=== PATIENT | female | born 1980 | race Caucasian/White ===

== ENCOUNTER → 2024-04-18 13:59 | Outpatient (REF) | payer BC, SELFPAY | LOC: HWWDC 13:59 | PROVIDERS: ATTENDING PHYSICIAN Internal Medicine | DX: Z12.31 Encounter for screening mammogram for malignant neoplasm of breast (principal) | CPT/HCPCS: 77063; 77067 ==

== ENCOUNTER → 2024-07-20 06:33 | Day surgery (SDC) | payer BC, SELFPAY | LOC: GI 06:33 | PROVIDERS: ATTENDING PHYSICIAN Specialist | DX: Z12.11 Encounter for screening for malignant neoplasm of colon (principal); K63.5 Polyp of colon; K57.30 Diverticulosis of large intestine without perforation or abscess without bleeding; Z80.0 Family history of malignant neoplasm of digestive organs | CPT/HCPCS: 45380; 88305 ==

== ENCOUNTER → 2024-10-15 09:35 | Outpatient (REF) | payer BC, SELFPAY | LOC: HWRAD 09:35 | PROVIDERS: ATTENDING PHYSICIAN Internal Medicine Gastroenterology | DX: R14.0 Abdominal distension (gaseous) (principal) | CPT/HCPCS: 76700 ==

== ENCOUNTER → 2025-05-27 14:06 | Outpatient (REF) | payer BC, SELFPAY | LOC: WDC 14:06 | PROVIDERS: ATTENDING PHYSICIAN Obstetrics & Gynecology; FAMILY PHYSICIAN Student in an Organized Health Care Education/Training Program | DX: Z12.31 Encounter for screening mammogram for malignant neoplasm of breast (principal) | CPT/HCPCS: 77063; 77067 ==

== ENCOUNTER → 2025-06-05 08:43 | Outpatient (REF) | payer BC, SELFPAY | LOC: WDC 08:43 | PROVIDERS: ATTENDING PHYSICIAN Obstetrics & Gynecology; FAMILY PHYSICIAN Student in an Organized Health Care Education/Training Program | DX: R92.8 Other abnormal and inconclusive findings on diagnostic imaging of breast (principal) | CPT/HCPCS: 76642 ==

== ENCOUNTER → 2025-06-18 08:06 | Outpatient (REF) | payer BC, SELFPAY ==
--- NOTE | 2025-06-18 13:25 | OID.BR.INTR ---
[facility] Breast Navigator - Initial
- -
Date of Contact: 06/18/25
Met with patient. Patient given written information on navigator service available at [facility]. Will follow up as needed per protocol.
== END ==
LOC: WDC 08:06
PROVIDERS: ATTENDING PHYSICIAN Obstetrics & Gynecology; FAMILY PHYSICIAN Student in an Organized Health Care Education/Training Program
DX: N63.11 Unspecified lump in the right breast, upper outer quadrant (principal)
CPT/HCPCS: 19083; 88305

== ENCOUNTER → 2025-10-24 12:26 | Outpatient (REF) | payer BC, SELFPAY | LOC: RAD 12:26 | PROVIDERS: ATTENDING PHYSICIAN Family Medicine | DX: R05.1 Acute cough (principal) | CPT/HCPCS: 71046 ==